=== PATIENT | female | born 1955 | race African-American/Black ===

== ENCOUNTER 2018-01-16 10:48 | Emergency (ER) | payer SELFPAY ==
[~2018-01-16] VITALS: Ht 180.3 cm; Wt 83.0 kg
[2018-01-16 11:34] LABS: EOSINOPHILS % 3.2 % (0.0-5.0); HEMATOCRIT. 42.5 % (36.0-48.0); HEMOGLOBIN. 14.2 g/dL (12.0-16.0); LYMPHOCYTES % 35.7 % (20.0-50.0); MEAN CORPUSCULAR HEMOGLOBIN 27.8 pg (28.0-32.0); MEAN CORPUSCULAR VOLUME 83.3 fL (81.0-99.0); MEAN PLATELET VOLUME 7.9 fl (7.4-10.4); NEUTROPHILS % 53.1 % (40.0-76.0); PLATELET 268 x1000/uL (130-400); RED CELL DISTRIBUTION WIDTH 13.7 % (11.6-14.6)
[2018-01-16 11:42] LABS: CHLORIDE 102 mEq/L (98-107)
[2018-01-16] MEDS ORDERED: CLONIDINE 0.2MG TABLET PO ONE (11:45)
[2018-01-16] MEDS ORDERED: IBUPROFEN 600MG TABLET PO ONE (11:45)
[2018-01-16 16:00] VITALS: BP 127/65
== END 2018-01-16 15:15 | disposition home or self-care (01) ==
LOC: ER 12:04
DX: I10 Essential (primary) hypertension (principal); R51 Headache; R73.03 Prediabetes
CPT/HCPCS: 36415; 80053; 85025; 85651; 99284

== ENCOUNTER 2018-01-18 07:22 | Emergency (ER) | payer BC ==
[~2018-01-18] VITALS: Ht 180.3 cm; Wt 83.0 kg
[2018-01-18 08:19] LABS: BASOPHILS % 1.2 % (0.0-2.0); EOSINOPHILS % 3.5 % (0.0-5.0); HEMATOCRIT. 39.9 % (36.0-48.0); HEMOGLOBIN. 13.1 g/dL (12.0-16.0); LYMPHOCYTES % 26.4 % (20.0-50.0); MEAN CORPUSCULAR HEMOGLOBIN 27.4 pg (28.0-32.0); MEAN CORPUSCULAR VOLUME 83.7 fL (81.0-99.0); MEAN PLATELET VOLUME 8.5 fl (7.4-10.4); NEUTROPHILS % 59.9 % (40.0-76.0); PLATELET 240 x1000/uL (130-400); RED BLOOD CELL COUNT 4.77 mill/uL (4.2-5.4); RED CELL DISTRIBUTION WIDTH 13.7 % (11.6-14.6)
[2018-01-18 08:24] LABS: CHLORIDE 101 mEq/L (98-107)
[2018-01-18] MEDS ORDERED: DILTIAZEM HCL 180MG CAPSULE CD 24HR PO ONE (11:00)
[2018-01-18 11:02] VITALS: BP 160/79
== END 2018-01-18 11:18 | disposition home or self-care (01) ==
LOC: ER 08:23
DX: I10 Essential (primary) hypertension (principal); R51 Headache; E11.9 Type 2 diabetes mellitus without complications
CPT/HCPCS: 36415; 80048; 85025; 99284; Z7610